=== PATIENT | female | born 1990 | race Hispanic/Latino ===

== ENCOUNTER 2024-11-04 14:34 | Emergency (ER) | payer SELFPAY ==
[2024-11-04 14:38] VITALS: BP 100/64
[2024-11-04 15:18] LABS: INR 1.02; PT 13.9 Sec (11.4-14.6)
[2024-11-04 15:19] LABS: % Basophils 0.3 % (0-2); % Eosinophils 0.3 % (0-6); % Immature Granulocytes 0.3 % (0-0.5); % Lymphocytes 17.8 % (20.5-51.1); % Monocytes 4.2 % (1.7-9.3); % Neutrophils 77.1 % (42.2-75.2); Absolute Lymphocytes 1.4 10^3/uL (1.2-3.4); Absolute Monocytes 0.3 10^3/uL (0.1-0.6); HCG, Serum Qualitative Screen Negative; Hemoglobin 10.4 g/dL (12.0-16.0); Mean Corp Hgb Conc. 32.5 g/dL (33.0-37.0); Mean Corpuscular Hgb 26.3 pg (27.0-31.0); Mean Platelet Volume 10.6 fL (7.4-10.4); Nucleated Red Blood Cells % 0 %; Platelet Count 251 10^3/uL (130-400); Red Blood Cell Count 3.95 10^6/uL (4.20-5.40); Red Cell Dist. Width 13.2 % (11.5-14.5); White Blood Cell Count 7.7 10^3/uL (4.8-10.8)
[2024-11-04 15:21] LABS: ALT (SGPT) 12 U/L (0-35); AST (SGOT) 17 U/L (14-36); Albumin 4.5 g/dl (3.5-5.0); Alkaline Phosphatase 56 U/L (38-126); Blood Urea Nitrogen 8 mg/dl (7-17); Calcium 8.9 mg/dl (8.4-10.2); Carbon Dioxide 22 mmol/L (22-30); Chloride 112 mmol/L (98-107); Glucose 101 mg/dl (70-99); Potassium 3.6 mmol/L (3.5-5.1); Sodium 140 mmol/L (135-145); Total Bilirubin 0.7 mg/dl (0.2-1.3); Total Protein 7.6 g/dl (6.3-8.2); eGFR > 60.00
[2024-11-04 15:33] LABS: Troponin I < 0.012 ng/ml
[2024-11-04 19:51] VITALS: BP 111/60
--- NOTE | 2024-11-04 20:02 | ED.GENMED ---
History of Present Illness
General
Chief Complaint: Abdominal Symptoms
Source: patient and family (Cousin/educational sign language interpreter)
Exam Limitations: none
Time Seen by Provider: 11/04/24 19:48
History of Present Illness
History of Present Illness:
34-year-old female left lower quadrant pain started this morning. She did not describe it as going on for the past month. Also complaining of a general headache since this morning. Admits to being under significant stress. Some nausea and
vomiting this morning. No urinary symptoms. Has irregular menses. Last period was 2 weeks ago. No fever no photophobia no chest pain shortness of breath or other complaints
Past History
Past History
ED Past Medical History: None
ED Past Surgical History: None
Social History
Tobacco: Non-smoker
Alcohol: None
Drug: None
Personal:
Living: with family
Employment: Employed
Family History
Family History: Other
Review of Systems
Review of Systems
All Other Systems: Not applicable
Constitutional: Denies fever
Respiratory: Reports no symptoms
Cardiac: Reports no symptoms
: Reports no symptoms
Phy Exam
Physical Exam
Physical Exam:
GENERAL: Alert and oriented in no apparent distress
EYE: Orbits normal.
NECK: Supple, nontender
ENT: Pharynx without erythema
CARDIAC: Regular rate and rhythm without any obvious murmurs.
LUNGS: Clear breath sounds,normal
ABDOMEN: Soft, recurrent left lower quadrant tenderness. Some tenderness radiating toward the pelvis. No rebound or guarding no mass or hernia. No CVA tenderness
NEUROLOGICAL: Alert and oriented , grossly non-focal
SKIN: Warm and dry, no rash or lesion, no discoloration, skin intact.
MUSCULOSKELETAL: No edema,no deformity.Good color
PSYCH: Normal and appropriate interaction.
Course
Orders/Labs/Results
Orders:
Orders
11/04/24 14:40
EKG [Electrocardiogram (*1)] Urgent
Reason for Study: Other
Other Reason for Exam: left shoulder pain
CT Head W/o Iv Contrast Urgent
Comment:
Reason For Exam: headache into the left shoulder
11/04/24 14:41
EKG- Treatment ONCE
Test Result ONCE
11/04/24 14:51
US Pelvis W Transvag Combined Urgent
Comment:
Reason For Exam: left groin pain
11/04/24 14:58
Complete Blood Count/With Diff Urgent
Comprehensive Metabolic Panel Urgent
HCG, Serum Qualitative Screen Urgent
Prothrombin Time Urgent
Troponin I Urgent
11/04/24 20:01
CT Abd/Pel (IV only)-DH only Urgent
Comment:
Reason For Exam: Left lower quadrant pain
IV Insert/Care/Rem.- Treatment PRN
0.9% Sodium Chloride 500 ml [Nss] 500 ml IV BOLUS
Ketorolac [Toradol] 15 mg IV NOW STA
Abnormal Lab Results
11/04/24
14:58
RBC 3.95 L 10^6/uL
(4.20-5.40)
Hgb 10.4 L g/dL
(12.0-16.0)
Hct 32.0 L %
(37.0-47.0)
MCH 26.3 L pg
(27.0-31.0)
MCHC 32.5 L g/dL
(33.0-37.0)
MPV 10.6 H fL
(7.4-10.4)
Neutrophils % 77.1 H %
(42.2-75.2)
Lymphocytes % 17.8 L %
(20.5-51.1)
Chloride 112 H mmol/L
(98-107)
Creatinine 0.5 L mg/dL
(0.6-1.0)
Glucose 101 H mg/dl
(70-99)
11/04/24 14:58
11/04/24 14:58
Vital Signs
Initial and Last Documented VS:
Initial Vital Signs
Temp Pulse Resp BP Pulse Ox
98.8 F 71 18 100/64 99
11/04/24 14:38 11/04/24 14:38 11/04/24 14:38 11/04/24 14:38 11/04/24 14:38
Last Documented Vital Signs
Temp Pulse Resp BP Pulse Ox
98.8 F 63 18 111/60 100
11/04/24 14:38 11/04/24 19:51 11/04/24 19:51 11/04/24 19:51 11/04/24 19:51
MDM/Problems Addressed
Differential Diagnosis Includes:
Patient describing left lower quadrant pain left pelvic pain. Differential would be an ovarian issue. Doubt torsion based on her appearance and behavior. Diverticulitis. Kidney stone. Doubt the headaches are anything serious. Her neurologic
exam is normal. She is stressed. She has no fever. Her head CT which was already done is negative. Her white count is normal. Workup in progress.
*Radiology
Radiology exam reviewed: radiology read reviewed (Negative head CT) and other (CT is unremarkable except for a nabothian cyst 4 mm)
*Pulse Oximetry
Patient hypoxic: no
*EKG
Interpreted by ED Provider?: Yes
Interpretation: abnormal
Comparison EKG: no changes
Heart Rate: 88
Rate: normal
Rhythm: sinus
[place]: normal axis
Interval: normal interval
QRS Pattern: normal QRS
Ischemia: no ischemia
*Critical Care Note
Total Time (30-74mins, 75-104mins- exclusive of procedures): Not Applicable
Update Note
Update Note:
No serious etiology for patient's symptoms. Nonsurgical abdomen. Markable ultrasound and CT report. Able for discharge to follow-up
ED Attending Note
-
Portions of this chart may have been created with voice recognition software.� Occasional wrong word or��sound alike� substitutions may have occurred due to the inherent limitations of voice recognition software.
Discharge Plan
Departure
Patient Disposition: Home (Routine Discharge)
Date of Disposition: 11/04/24
Time of Disposition: 22:19
Patient with high blood pressure during this ER visit?: No
Discharge Problem:
Lower abdominal pain/headache
Instructions: Headaches in adults, Abdominal Pain
Prescriptions:
No Action
ibuprofen 600 mg tablet
600 mg PO Q8H PRN (Reason: Pain) Qty: 20 0RF
Referrals:
[facility] [Outside] - Next open appointment
UNKNOWN - PT DOES,NOT KNOW [Family Provider] -
Activity Restrictions/Additional Instructions:
Return with increasing or progressive pain fever worsening headache or any other concerning symptoms
Interventions
Interventions:
*Risk Screen - Suicide Last Done: 11/04/24 14:42
*General Assessment Last Done: 11/04/24 14:42
*Neglect/Abuse Screening Last Done: 11/04/24 14:42
*ED COVID-19 Vaccine History Last Done: 11/04/24 14:42
BS-Wpkocd-Tkwramvntk Assessment Last Done: 11/04/24 19:51
Discharge Date and Time
Print Language: UPPER SORBIAN
[2024-11-04] MEDS: TORADOL 15 MG IV (20:21)
[2024-11-04] MEDS: NSS 500 IV (20:22)
== END 2024-11-04 22:35 | disposition home or self-care (01) ==
LOC: EMR 14:34
PROVIDERS: Student in an Organized Health Care Education/Training Program; EMERGENCY PHYSICIAN Emergency Medicine
DX: R10.30 Lower abdominal pain, unspecified (principal); R51.9 Headache, unspecified
CPT/HCPCS: 99285; 96374; 96361; 70450; 74177; 76830; 76856; 80053; 84484; 84703; 85025; 85610; 93005; Q9967